=== PATIENT | male | born 1945 | race Caucasian/White ===

== ENCOUNTER 2024-06-30 17:40 | Emergency (ER) | payer MEDICARE, BC ==
[~2024-06-30] VITALS: Ht 167.6 cm; Wt 77.1 kg
[2024-06-30] MEDS ORDERED: AMOX500C2 PO (18:11)
[2024-06-30] MEDS ORDERED: LIDOCAINE 2%-EPI 1:100,000 20 ML VIAL ONE (18:14)
[2024-06-30] MEDS ORDERED: TDAP DIPH,PERTUSS,TET VAC/PF 0.5 ML DISP.SYRIN IM ONE (18:14)
[2024-06-30] MEDS ORDERED: AMOXicillin 250 MG CAPSULE ONE (18:14)
[2024-06-30] MEDS ORDERED: NEOMY/BACITRA/POLYMYXIN B OINT UD PACKET TP ONE (18:15)
[2024-06-30] MEDS: AMOXicillin 250 MG CAPSULE PO ONE (18:18)
[2024-06-30] MEDS: LIDOCAINE 1%-EPI 1:100,000 20 ML VIAL IJ ONE (18:19)
[2024-06-30] MEDS: TDAP DIPH,PERTUSS,TET VAC/PF 0.5 ML DISP.SYRIN IM ONE (18:19)
[2024-06-30] MEDS: NEOMY/BACITRA/POLYMYXIN B OINT UD PACKET TP ONE (18:39)
[2024-06-30 20:43] VITALS: BP 124/70; TEMP 98; O2SAT 98
== END 2024-06-30 20:43 | disposition home or self-care (01) ==
LOC: ER 17:41
DX: S02.2XXA Fracture of nasal bones, initial encounter for closed fracture (principal); Z79.899 Other long term (current) drug therapy; W18.39XA Other fall on same level, initial encounter; Y93.89 Activity, other specified; Y92.89 Other specified places as the place of occurrence of the external cause; Y99.8 Other external cause status
CPT/HCPCS: 70450; 70486; 72125; 90715; A4606; A4663